=== PATIENT | male | born 1990 | race American Indian/Alaskan Native ===

== ENCOUNTER 2018-04-24 11:26 | Emergency (ER) | payer SELFPAY ==
[2018-04-24 11:49] VITALS: BP 146/85
--- NOTE | 2018-04-24 11:52 | Emergency Department Report ---
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
[2018-04-24] MEDS ORDERED: TYLENOL ONE (11:54)
[2018-04-24] MEDS ORDERED: TYLENOL PO ONE (11:56)
--- NOTE | 2018-04-24 12:26 | XRay Report ---
ROUTINE CHEST, TWO VIEWS: HISTORY: Cough. The trachea, heart, mediastinal contour, lung concepcion and bony thorax are unremarkable. Mild scoliosis is noted. IMPRESSION: Unremarkable chest x-ray.
--- NOTE | 2018-04-24 13:13 | Emergency Department Report ---
ED General Adult HPI - General Chief complaint: Upper Respiratory Infection Stated complaint: CHEST PAIN/FLU SYMPTOMS Time Seen by Provider: 04/24/18 11:48 Source: patient Mode of arrival: Ambulatory Limitations: No Limitations - History of Present Illness Initial comments: Patient presents to emergency department with a chief complaint of a cough since . Patient also complains of having a fever 2 days ago with body aches as well. Patient denies chest pain, headache, or abdominal pain. -: Gradual Severity scale (0 -10): 5 Quality: aching Consistency: constant Improves with: none Worsens with: none Associated Symptoms: denies other symptoms Treatments Prior to Arrival: none - Related Data Previous Rx's Medication Instructions Recorded Last Taken Type ALBUTEROL Inhaler (OR & NICU) 2 puff IH Q4HR PRN #1 inhalation 04/24/18 Unknown Rx [ProAir HFA Inhaler] Codeine Phosphate/Guaifenesin 180 ml PO Q12HR PRN #180 liquid 04/24/18 Unknown Rx [Guaifenesin-Codeine Syrup] predniSONE [Deltasone] 20 mg PO DAILY #15 tablet 04/24/18 Unknown Rx traMADol [Ultram] 50 mg PO Q6HR PRN #24 tablet 04/24/18 Unknown Rx Allergies Allergy/AdvReac Type Severity Reaction Status Date / Time No Known Allergies Allergy Unverified 04/24/18 11:49 ED Review of Systems ROS: Stated complaint: CHEST PAIN/FLU SYMPTOMS Other details as noted in HPI Comment: All other systems reviewed and negative Constitutional: denies: chills, fever Eyes: denies: eye pain, eye discharge, vision change ENT: denies: ear pain, throat pain Respiratory: wheezing. denies: cough, shortness of breath Cardiovascular: denies: chest pain, palpitations Endocrine: no symptoms reported Gastrointestinal: denies: abdominal pain, nausea, diarrhea Genitourinary: denies: urgency, dysuria Musculoskeletal: denies: back pain, joint swelling, arthralgia Skin: denies: rash, lesions Neurological: denies: headache, weakness, paresthesias Psychiatric: denies: anxiety, depression Hematological/Lymphatic: denies: easy bleeding, easy bruising ED Past Medical Hx - Past Medical History Previous Medical History?: Yes Hx Asthma: Yes - Surgical History Past Surgical History?: No - Social History Smoking Status: Never Smoker Substance Use Type: None - Medications Home Medications: Home Medications Medication Instructions Recorded Confirmed Last Taken Type ALBUTEROL Inhaler (OR & NICU) 2 puff IH Q4HR PRN #1 inhalation 04/24/18 Unknown Rx [ProAir HFA Inhaler] Codeine Phosphate/Guaifenesin 180 ml PO Q12HR PRN #180 liquid 04/24/18 Unknown Rx [Guaifenesin-Codeine Syrup] predniSONE [Deltasone] 20 mg PO DAILY #15 tablet 04/24/18 Unknown Rx traMADol [Ultram] 50 mg PO Q6HR PRN #24 tablet 04/24/18 Unknown Rx ED Physical Exam - General Limitations: No Limitations General appearance: alert, in no apparent distress - Head Head exam: Present: atraumatic, normocephalic - Eye Eye exam: Present: normal appearance, PERRL, EOMI - ENT ENT exam: Present: mucous membranes moist - Neck Neck exam: Present: normal inspection - Respiratory Respiratory exam: Present: normal lung sounds bilaterally, wheezes. Absent: respiratory distress, rales - Cardiovascular Cardiovascular Exam: Present: regular rate, normal rhythm. Absent: systolic murmur, diastolic murmur, rubs, gallop - GI/Abdominal GI/Abdominal exam: Present: soft, normal bowel sounds. Absent: distended, tenderness - Rectal Rectal exam: Present: deferred - Extremities Exam Extremities exam: Present: normal inspection - Back Exam Back exam: Present: normal inspection - Neurological Exam Neurological exam: Present: alert, oriented X3, CN II-XII intact. Absent: motor sensory deficit - Psychiatric Psychiatric exam: Present: normal affect, normal mood - Skin Skin exam: Present: warm, dry, intact, normal color. Absent: rash ED Course Vital Signs 04/24/18 11:47 Temperature 100.4 F H Pulse Rate 113 H Respiratory 20 Rate Blood Pressure 146/85 O2 Sat by Pulse 98 Oximetry ED Medical Decision Making - Radiology Data Radiology results: report reviewed - Medical Decision Making Discussed plan of care with patient Critical care attestation.: If time is entered above; I have spent that time in minutes in the direct care of this critically ill patient, excluding procedure time. ED Disposition Clinical Impression: Bronchitis Disposition: DC-01 TO HOME OR SELFCARE Is pt being admited?: No Does the pt Need Aspirin: No Condition: Stable Instructions: Acute Bronchitis (ED) Referrals: OBIEKALICIA,ONWURA, MD [Primary Care Provider] - 3-5 Days [facility] [Provider Group] - 3-5 Days [facility] [Provider Group] - 3-5 Days Forms: Work/School Release Form(ED) Time of Disposition: 13:11
== END 2018-04-24 13:18 | disposition home or self-care (01) ==
LOC: ED 11:26
DX: J45.909 Unspecified asthma, uncomplicated (principal)
CPT/HCPCS: 71046; 99283